=== PATIENT | male | born 1945 | race Two or more races ===

== ENCOUNTER 2017-10-06 11:03 | Outpatient (CLI) | payer OTHER | END 2017-10-06 11:13 | disposition home or self-care (01) | LOC: TOM 11:03 | DX: R42 Dizziness and giddiness (principal); R26.89 Other abnormalities of gait and mobility ==

== ENCOUNTER 2017-10-10 08:19 | Outpatient (CLI) | payer OTHER | END 2017-10-10 08:21 | disposition home or self-care (01) | LOC: NUCLEAR 08:19 | DX: I65.29 Occlusion and stenosis of unspecified carotid artery (principal); R42 Dizziness and giddiness ==